=== PATIENT | male | born 1965 | race Caucasian/White ===

== ENCOUNTER 2025-04-23 23:26 | Emergency (ER) | payer OTHER, SELFPAY ==
--- OUTSIDE RECORDS SUMMARY | 2025-04-19 07:50 | XMS_ITS | Encounter Summary ---
Author Organization [place] Address [address] [place] [address] Care Team Providers Care Program Manager Environmental Planning Name Role Phone No Ref-Primary, Physician Primary Care Provider Encounter Details Date Type Department Care Team (Late st Contact Info) Description 04/19/2025 7:50 AM CDT [facility] [address] [place] [address] Essential hypertension, malignant; Erectile dysfunction Social History Tobacco Use Types Packs/Day Years Used Date Smoking Tobacco: Never Assessed Adolescent Education Answer Date Record ed Getting School Help Needed Not on file 04/18 Sex and Gender Information Value Date Recorded Sex Assigned at Not on file 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 Gender Identity Not on file Sexual Orientation Not on file documented as of this encounter Plan of Treatment Not on file documented as of this encounter Procedures Procedure Name Priority Date/Time Associated Diagnosis Comments CBC WITH PLATELETS AND DIFFERENTIAL Routine 04/19/2025 7:31 AM CDT Essential hypertension, malignant Erectile dysfunction CBC WITH PLATELETS & DIFFERENTIAL Routine 04/19/2025 7:31 AM CDT Essential hypertension, malignant Erectile dysfunction PSA TOTAL AND FREE Routine 04/19/2025 7: 31 AM CDT Essential hypertension, malignant Erectile dysfunction LIPID PROFILE Routine 04/19/2025 7:31 AM CDT Essential hypertension, malignant Erectile dysfunction COMPREHENSIVE METABOLIC PANEL Routine 04/19/2025 7:31 AM CDT Essential hypertension, malignant Erectile dysfunction documented in this encounter Results * CBC with platelets and differential (04/19/2025 7:31 AM CDT) WBC Count 4.03 4.00 - 11.00 10e3/uL 04/19/2025 7:41 AM CDT [facility] RBC Count 5.14 4.40 - 5.90 10e6/uL 04/19/2025 7:41 AM CDT [facility] Hemoglobin 15.6 13.3 - 17.7 g/dL 04/19/2025 7:41 AM CDT [facility] Hematocrit 45.7 40.0 - 53.0 % 04/19/2025 7:41 AM CDT [facility] MCV 88.9 78.0 - 100.0 fL 04/19/2025 7:41 AM CDT [facility] MCH 30.4 26.5 - 33.0 pg 04/19/2025 7:41 AM CDT [facility] MCHC 34.1 31.5 - 36.5 g/dL 04/19/2025 7:41 AM CDT [facility] RDW 12.6 10.0 - 15.0 % 04/19/2025 7:41 AM CDT [facility] Platelet Count 197 150 - 450 10e3/uL 04/19/2025 7:41 AM CDT [facility] % Neutrophils 58.3 % 04/19/2025 7:41 AM CDT [facility] % Lymphocytes 29.8 % 04/19/2025 7:41 AM CDT [facility] % Monocytes 9.7 % 04/19/2025 7:41 AM CDT [facility] % Eosinophils 1.7 % 04/19/2025 7:41 AM CDT [facility] % Basophils 0.5 % 04/19/2025 7:41 AM CDT [facility] % Immature Granulocytes 0.0 % 04/19/2025 7:41 AM CDT [facility] Absolute Neutrophils 2.35 1.60 - 8.30 10e3/uL 04/19/2025 7:41 AM CDT [facility] Absolute Lymphocytes 1.20 0.80 - 5.30 10e3/uL 04/19/2025 7:41 AM CDT [facility] Absolute Monocytes 0.39 0.00 - 1.30 10e3/uL 04/19/2025 7:41 AM CDT [facility] Absolute Eosinophils 0.07 0.00 - 0.70 10e3/uL 04/19/2025 7:41 AM CDT [facility] Absolute Basophils <0.04 0.00 - 0.20 10e3/uL 04/19/2025 7:41 AM CDT [facility] Absolute Immature Granulocytes <0.04 <=0.40 10e3/uL 04/19/2025 7:41 AM CDT [facility] Blood BLOOD SPECIMEN / Unknown Venipuncture / Unknown 04/19/2025 7:31 AM CDT 04/19/2025 7:34 AM CDT us Shelly Ely MD LAB - BLOOD ORDERABLES Final Result LABORATORY [facility] - [facility] [address] [facility] (no room number, 1st floor of clinic) [place] [address], [facility] * PSA total and free (04/19/2025 7:31 AM CDT) PSA Free 0.4 ng/mL 04/19/2025 4:40 PM CDT [facility] PSA Percent Free 72.73 % 04/19/20 4:40 PM CDT [facility] Comment: When Total PSA concentration is in the range of 4.0-10.0 ng/mL Probability of Prostate Cancer: Patient Age % Free PSA 50 to 59yrs 60 to 69yrs >= 70yrs 0.00 to 10.00% 49% 58% 65% 10.01 to 18.00% 27% 34% 41% 18.01 to 25.00% 18% 24% 30% > = 25.00% 9% 12% 16% PSA Total 0.55 0.00 - 4.50 ng/mL 04/19/2025 4:40 PM CDT [facility] Blood BLOOD SPECIMEN / Unknown Venipuncture / Unknown 04/19/2025 7:31 AM CDT 04/19/2025 7:34 AM CDT Narrative [facility] - 04/19/2025 4:40 PM CDT Results are obtained using the [employer] Ele[employer] total PSA and free PSA methods on the sujey e801 immunoassay analyzer, which is an ultrasensitive method. Results obtained with different assay methods or kits cannot be used interchangeably. us Shelly Ely MD LAB - BLOOD ORDERABLES Final Result [facility] [address] [facility] [address], [address] [place] [address], [facility] * (ABNORMAL) Lipid Profile (04/19/2025 7:31 AM CDT) Pathologist [facility] Cholesterol 203(H) <200 mg/dL 04/19/2025 4:40 PM CDT [facility] Triglycerides 63 <150 mg/dL 04/19/2025 4:40 PM CDT [facility] Direct Measure HDL 73 >=40 mg/dL 04/19/2025 4:40 PM CDT [facility] LDL Cholesterol Calculated 117(H) <100 mg/dL 04/19/2025 4:40 PM CDT [facility] Comment:LDL calculated using the Friedewald equation. Non HDL Cholesterol 130(H) <130 mg/dL 04/19/2025 4:40 PM CDT [facility] Patient Fasting > 8hrs? Yes 04/19/2025 4:40 PM CDT [facility] Blood BLOOD SPECIMEN / Unknown Venipuncture / Unknown 04/19/2025 7:31 AM CDT 04/19/2025 7:34 AM CDT Narrative [facility] - 04/19/2025 4:40 PM CDT Cholesterol Desirable: < 200 mg/dL Borderline High: 200 - 239 mg/dL High: >= 240 mg/dL Triglycerides Normal: < 150 mg/dL Borderline High: 150 - 199 mg/dL High: 200-499 mg/dL Very High: >= 500 mg/dL Direct Measure HDL Female: >= 50 mg/dL Male: >= 40 mg/dL LDL Cholesterol Desirable: < 100 mg/dL Above Desirable: 100 - 129 mg/dL Borderline High: 130 - 159 mg/dL High: 160 - 189 mg/dL Very High: >= 190 mg/dL Non HDL Cholesterol Desirable: < 130 mg/dL Above Desirable: 130 - 159 mg/dL Borderline High: 160 - 189 mg/dL High: 190 - 219 mg/dL Very High: >= 220 mg/dL Shelly Ely MD LAB - BLOOD ORDERABLES Final Result [facility] [address] [facility], [address] [place] [address], [facility] * Comprehensive metabolic panel (04/19/2025 7:31 AM CDT) Sodium 141 135 - 145 mmol/L 04/19/2025 4:40 PM CDT [facility] Potassium 3.9 3.4 - 5.3 mmol/L 04/19/2025 4:40 PM CDT [facility] Carbon Dioxide (CO2) 26 22 - 29 mmol/L 04/19/2025 4:40 PM CDT [facility] Anion Gap 12 7 - 15 mmol/L 04/19/2025 4:40 PM CDT [facility] Urea Nitrogen 11.6 8.0 - 23.0 mg/dL 04/19/2025 4:40 PM CDT [facility] Creatinine 1.12 0.67 - 1.17 mg/dL 04/19/2025 4:40 PM CDT [facility] GFR Estimate 75 >60 mL/min/1.7 3m2 04/19/2025 4:40 PM CDT [facility] Comment:eGFR calculated 2020 CKD-EPI equation. Calcium 9.5 8.8 - 10.4 mg/dL 04/19/2025 4:40 PM CDT [facility] Chloride 103 98 - 107 mmol/L 04/19/2025 4:40 PM CDT [facility] Glucose 88 70 - 99 mg/dL 04/19/2025 4:40 PM CDT [facility] Alkaline Phosphatase 52 40 - 150 U/L 04/19/2025 4:40 PM CDT [facility] AST 32 0 - 45 U/L 04/19/2025 4:40 PM CDT [facility] ALT 25 0 - 70 U/L 04/19/2025 4:40 PM CDT [facility] Protein Total 6.4 6.4 - 8.3 g/dL 04/19/2025 4:40 PM CDT [facility] Albumin 4.3 3.5 - 5.2 g/dL 04/19/2025 4:40 PM CDT [facility] Bilirubin Total 0.9 <=1.2 mg/dL 04/19/2025 4:40 PM CDT [facility] Patient Fasting > 8hrs? Yes 04/19/2025 4:40 PM CDT [facility] Blood BLOOD SPECIMEN / Unknown Venipuncture / Unknown 04/19/2025 7:31 AM CDT 04/19/2025 7:34 AM CDT us Shelly Ely MD LAB - BLOOD ORDERABLES Final Result [facility] [address] [facility], [address] [place] [address] documented in this encounter Visit Diagnoses Diagnosis Essential hypertension, malignant Erectile dysfunction Impotence of organic origin documented in this encounter Care Teams Program Manager Environmental Planning Relationship Specialty Start Date End Date No Ref-Primary, Physician PCP - General 09/29/18 documented as of this encounter
[2025-04-23 23:43] VITALS: BP 145/90; PULSE 63; RESP 16; TEMP 36.6; O2SAT 98; BMI 24.3
--- NOTE | 2025-04-24 00:24 | ED_ITS ---
HPI - General Adult General Date Seen: 04/24/25 Chief complaint: Syncope/Fainted Stated complaint: feeling faint Time Seen by Provider: 04/24/25 00:02 History of Present Illness HPI narrative: Patient is a 59-year-old male here with his for evaluation of an episode of near syncope tonight. They were at a concert, they were standing on the floor for a period of time when he started to feel lightheaded and tunnel vision. He says he broke out into a sweat and felt nauseated. They left the floor and went to sit down. Symptoms improved after about 20 minutes. He did not have any headache, chest pain, abdominal or back pain. He did note a little bit of shortness of breath. Denies prior history of syncope. He does have a family history with dad having had an LA at a relatively young age, as a result he has had multiple stress tests and had an angiogram but this was many years ago. He has not had any exertional recent symptoms. He has felt some ?heart fluttering occasionally including today, but has no documented history of arrhythmia. He does not smoke or drink, no substances. No medications and denies any medical history. Related Data Home Medications ?Medication ?Instructions ?Recorded ?Confirmed fosinopril 20 mg tablet 20 mg PO DAILY 04/23/2503/29 sildenafil 25 mg tablet 25 mg PO DAILY PRN 04/23/25 04/23/25 Allergies Allergy/AdvReac Type Severity Reaction Status Date / Time No Known Drug Allergies Allergy Verified 04/23/25 23:47 Review of Systems Status of ROS: Reports: 10 or more systems reviewed and unremarkable except as noted in History and below [facility] Social History Smoking Status: Never smoker Do you use any of these nicotine containing products: None How often do you have a drink containing alcohol: monthly or less How often do you have six or more drinks on one occasion: Never AUDIT-C Alcohol total score: 1 Non-prescribed substance use: denies use service: No Exam Narrative: Exam Narrative: Vital signs reviewed In general, alert, nontoxic mid aged male. He is comfortable, breathing easily. Head: Normocephalic, atraumatic. Eyes: Sclera clear. Pupils equal and reactive. ENT: Mucous membranes moist. Neck: Supple without adenopathy. Heart: Regular rate and rhythm without murmur. Lungs: Clear. No increased work of breathing, crackles or wheezes. Abdomen: Soft, nontender to palpation. Extremities: Well perfused, pulses intact. No significant edema. Neurologic: Alert, conversant. Speech fluent, face symmetric. Moves all extremities equally. Skin: Warm, dry well perfused. Affect: Normal. Const: Vital Signs, click to edit/add: Vital Signs - 24 hr 04/23/25 23:43 04/24/25 00:58 04/24/25 01:00 Temperature 98 F Pulse Rate 57 L 56 L Pulse Rate [Pulse Oximeter] 63 Respiratory Rate 16 18 16 Blood Pressure 117/91 H Blood Pressure [Ri ght Upper Arm] 145/90 H Pulse Oximetry 98 95 95 Oxygen Delivery Me thod Room Air Course Course ED Course: Patient presents with a near syncopal episode, diagnostic considerations would include arrhythmia, atypical angina, pulmonary embolism, vasovagal episode. I doubt an acute process such as aortic pathology, acute coronary syndrome, hemorrhage etcetera given that symptoms have resolved. Will check an EKG and basic labs here. If these are normal, plan will be to discharge home, reviewed that we would want him to follow up with primary care to discuss whether another stress test is warranted, ZIO patch would be another consideration. Evaluation here is unremarkable. His EKG shows some nonspecific ST and T-wave changes but nothing overly concerning. QT is 395 milliseconds, indices u nremarkable. Labs are reviewed and are normal, including troponin and D-dimer.. He is feeling well without further symptoms. Discussed all this with him. Discussed that we have not ruled out coronary artery disease or arrhythmia. I think it is reasonable to discharge home now, primary care follow-up as discussed above. Return any time for recurrent episodes or new symptoms such as chest pain, shortness of breath, etc.. Vital Signs Vital signs: Initial Vital Signs Temperature 98 F 04/23/25 23:43 Temperature Source Temporal Artery Scan 04/23/25 23:43 Pulse Rate 63 04/23/25 23:43 Respiratory Rate 16 04/23/25 23:43 Blood Pressure 145/90 H 04/23/25 23:43 Blood Pressure Mean 108 H 04/23/25 23:43 Blood Pressure Position Sitting 04/23/25 23:43 Pulse Oximetry 98 04/23/25 23:43 Oxygen Delivery Method Room Air 04/23/25 23:43 Vital Signs Temperature 98 F 04/23/25 23:43 Pulse Rate 63 04/23/25 23:43 Respiratory Rate 16 04/23/25 23:43 Blood Pressure 145/90 H 04/23/25 23:43 Pulse Oximetry 98 04/23/25 23:43 Oxygen Delivery Method Room Air 04/23/25 23:43 Temperature 98 F 04/23/25 23:43 Pulse Rate 56 L 04/24/25 01:00 Respiratory Rate 16 04/24/25 01:00 Blood Pressure 117/91 H 04/24/25 00:58 Pulse Oximetry 95 04/24/25 01:00 Oxygen Delivery Method Room Air 04/23/25 23:43 Medical Decision Making Lab Data Lab results reviewed: Yes I reviewed the patient's lab results Labs: Lab Results 04/24/25 04/24/25 Range/Units 00:13 00:26 WBC 9.08 (4.50-11.00) K/uL RBC 5.28 (4.30-5.90) m/uL Hgb 15.7 (13.5-17.5) gm/dL Hct 46.9 (37.0-53.0) % MCV 89 (80-100) fL MCH 30 (26-34) pg MCHC 34 (32-36) gm/dL RDW Coeff of Marlene 12.6 (11.5-15.5) % Plt Count 215 (140-440) K/uL Neut % (Auto) 80.2 H (42.0-72.0) % Lymph % (Auto) 10.2 L (20-44) % [place] % (Auto) 7.7 (0.0-11.0) % Eos % (Auto) 0.6 (0.0-7.0) % Baso % (Auto) 0.3 (0.0-3.0) % Neut # (Auto) 7.30 H (1.7-7.0) K/uL Lymph # (Auto) 0.90 (0.90-2.90) K/uL [place] # (Auto) 0.70 (0.00-0.90) K/UL Eos # (Auto) 0.05 (0.00-0.50) K/uL Baso # (Auto) 0.03 (0.00-0.30) K/uL Abs Immat Gran (auto) 0.09 (0.00-0.30) K/uL Imm/Tot Granulo (auto) 1.0 % D-Dimer Quant (PE/DVT) 0.30 (0.00-0.50) ug/ml Sodium 140 (135-149) mmol/L Potassium 3.9 (3.6-5.1) mmol/L Chloride 102 (96-114) mmol/L Carbon Dioxide 28 (20-32) mmol/L Anion Gap 10 (7-15) mEq/L BUN 23 (7-30) mg/dL Creatinine 1.3 (0.5-1.5) mg/dL Estimated Creat Clear 57.73 Estimated GFR 63 ml/min Glucose 100 (60-115) mg/dL Calcium 9.6 (8.4-10.6) mg/dL Total Bilirubin 0.9 (0.1-1.5) mg/dL AST 39 H (12-35) U/L ALT 33 (4-50) U/L Alkaline Phosphatase 49 (40-150) U/L Total Protein 7.1 (6.0-8.3) g/dL Albumin 4.5 (3.3-5.0) g/dL POC Troponin I 0.00 L (0.01-0.04) ng/ml Discharge Plan Discharge Clinical Impression: Near syncope Patient Disposition: Home, Self-Care Condition: Improved Instructions: Near Syncope (ED) Additional Instructions: All of your tests tonight are normal. There is no evidence of a heart attack, blood clot, anemia, dehydration, electrolyte abnormality or other acute condition. However, none of the tests that we have done tonight, as we discussed, answer the question of whether you may be developing heart disease. Another consideration would be that this could have been a brief arrhythmia, or abnormal heart rhythm. I do think it is most likely that this was a vasovagal reaction, but I would like you to follow-up with primary care to discuss whether further testing either stress test or ZIO patch, would be indicated. In the meantime, if you have recurrent symptoms, developed chest pain, shortness of breath, fainting, or other worsening symptoms, return to the ER at any time. Prescriptions: No Action fosinopril 20 mg tablet 20 mg PO DAILY sildenafil 25 mg tablet 25 mg PO DAILY PRN Rx Instructions: administer 30 minutes to 4 hours before activity Follow Up/Referrals: Shelly Ely MD [Primary Care Provider, Family Practice] Stand Alone Forms: [employer] Info Instructions
[2025-04-24 00:37] LABS: Hematocrit* 46.9 % (37.0-53.0); Hemoglobin* 15.7 gm/dL (13.5-17.5); Immature Granulocytes Abs Auto 0.09 K/uL (0.00-0.30); Immature Granulocytes Pct Auto 1.0 %; Mean Corpuscular HGB Conc 34 gm/dL (32-36); Mean Corpuscular Hemoglobin 30 pg (26-34); Mean Corpuscular Volume 89 fL (80-100); RDW Coefficient of Variation % 12.6 % (11.5-15.5); Red Blood Count* 5.28 m/uL (4.30-5.90); White Blood Count* 9.08 K/uL (4.50-11.00)
--- OUTSIDE RECORDS SUMMARY | 2025-04-24 00:54 | XMS_ITS | Clinical Summary ---
Author Organization [place] Address [address] [place] [id number] Care Team Providers Care Seedling Sorter Name Role Phone No Ref-Primary, Physician Primary Care Provider Encounters Date Type Department Care Team Description 04/19/2025 7:50 AM CDT Lab [facility] [address] [place] [phone] Essential hypertension, malignant; Erectile dysfunction 04/19/2025 Travel 04/13/2025 Orders Only [facility] [address] [place] [address] Shelly Ely MD Essential hypertension, malignant (Primary Dx); Erectile dysfunction from Last 3 Months Social History Tobacco Use Types Packs/Day Years Used Date Smoking Tobacco: Never Assessed Adolescent Education Answer Date Record ed Getting School Help Needed Not on file 04/18 Sex and Gender Information Value Date Recorded Sex Assigned at Not on file 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 Gender Identity Not on file Sexual Orientation Not on file Plan of Treatment Health Maintenance Due Date Last Done Comments ADVANCE CARE PLANNING 1963 ANNUAL REVIEW OF HM ORDERS 1963 CT COLONOGRAPHY 1963 FIT 1963 FLEX SIG 1963 COLONOSCOPY 1973 HIV SCREENING 1978 PNEUMOCOCCAL VACCINE 50+ YEARS (1 of 1 - PCV) 2013 YEARLY PREVENTIVE VISIT 03/25/2024 03/25/20, 03/04/2022, 03/04/2022, Additional history exists PHQ-2 (once per calendar year) 2024 COVID-19 VACCINE ( season) 2025 07/13/2021, 11/12/2020, 10/21/2020 INFLUENZA VACCINE (#1) 2025 08/01/2008 COLORECTAL CANCER SCREENING 01/30/2026 sDNA (Cologuard) 01/30/2026 01/30/2023 BMP 04/19/2026 04/19/2025, 08/09/2023, 02/16/2023, Additional history exists DIABETES SCREENING 04/19/2028 04/19/2025, 0 03/19/2024, 02/16/2023, Additional history exists LIPID 04/19/2030 04/19/2025, 0809/2023, 02/16/2023, Additional history exists DTAP/TDAP/TD VACCINE (2 - Td or Tdap) 03/22/2034 03/22/2024 RSV VACCINE (1 - 1-dose 75+ series) 2038 HEPATITIS C SCREENING Completed 12/01/2017 ZOSTER VACCINE Completed 03/25/2023, 03/13/2021 HPV VACCINE (No Doses Required) Completed MENINGITIS VACCINE Aged Out No longer eligible based on patient's age to complete this topic Procedures Procedure Name Priority Date/Time Associated Diagnosis Comments CBC WITH PLATELETS & DIFFERENTIAL Routine 04/19/2025 7:31 AM CDT Essential hypertension, malignant Erectile dysfunction CBC WITH PLATELETS AND DIFFERENTIAL Routine 04/19/2025 7:31 AM CDT Essential hypertension, malignant Erectile dysfunction PSA TOTAL AND FREE Routine 04/19/2025 7: 31 AM CDT Essential hypertension, malignant Erectile dysfunction LIPID PROFILE Routine 04/19/2025 7:31 AM CDT Essential hypertension, malignant Erectile dysfunction COMPREHENSIVE METABOLIC PANEL Routine 04/19/2025 7:31 AM CDT Essential hypertension, malignant Erectile dysfunction from Last 3 Months Results * CBC with platelets and differential [...] 7:31 AM CDT 04/19/2025 7:34 AM CDT Shelly Ely MD LAB - BLOOD ORDERABLES Final Result [facility] [address] [facility] Lab (no room number, 1st floor of clinic) [place] [address], [facility] * PSA total and free (04/19/2025 7:31 AM CDT) PSA Free 0.4 ng/mL 04/19/2025 4:40 PM CDT [facility] PSA Percent Free 72.73 % 04/19/20 25 4:40 PM CDT [facility] Comment: When [...] methods or kits cannot be used interchangeably. Shelly Ely MD LAB - BLOOD ORDERABLES Final Result [facility] [address] [facility], [address] [place] [phone] * (ABNORMAL) Lipid Profile (04/19/2025 7:31 AM CDT) Cholesterol 203(H) <200 mg/dL 04/19/2025 4:40 PM [...] - BLOOD ORDERABLES Final Result [facility] [address] [facility], [address] [place] [address], [facility] * Comprehensive metabolic panel (04/19/2025 7:31 AM [...] 7:31 AM CDT 04/19/2025 7:34 AM CDT Shelly Ely MD LAB - BLOOD ORDERABLES Final Result [facility] [address] [facility], [address] [place] [address], [facility] from Last 3 Months Insurance [employer] [place] [employer] Care Teams Seedling Sorter Relationship Specialty Start Date End Date No Ref-Primary, Physician PCP - General 09/29/18
--- OUTSIDE RECORDS SUMMARY | 2025-04-24 00:54 | XMS_ITS | Encounter Summary ---
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
--- OUTSIDE RECORDS SUMMARY | 2025-04-24 00:54 | XMS_ITS | Encounter Summary ---
Author Organization [facility] Address [address] [place] [address] Care Team Providers Care Capsule Machine Operator Name Role Phone No Ref-Primary, Physician Primary Care Provider Encounter Details Date Type Department Care Team (Late st Contact Info) Description 04/13/[address] 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 Gender Identity Not on file Sexual Orientation Not on file documented as of this encounter Plan of Treatment Not on file documented as of this encounter Results * PSA total and free (04/19/2025 7:31 [...] - BLOOD ORDERABLES Final Result [facility] [address] [facility], [address] [address] * (ABNORMAL) Lipid Profile (04/19/2025 7:31 [...] 219 mg/dL Very High: >= 220 mg/dL us Shelly Ely MD LAB - BLOOD ORDERABLES Final Result [facility] [address] [facility], [address] [phone] * Comprehensive metabolic panel (04/19/2025 7:31 [...] 4:40 PM CDT [facility] Comment:eGFR calculated us2020 CKD-EPI equation. Calcium 9.5 8.8 - 10.4 [...] - BLOOD ORDERABLES Final Result [facility] [address] [facility], [address] [phone] documented in this encounter Visit Diagnoses Diagnosis Essential hypertension, malignant- Primary Erectile dysfunction Impotence of organic origin documented in this encounter Care Teams Capsule Machine Operator Relationship Specialty Start Date End Date No Ref-Primary, Physician PCP - General 09/29/18 documented as of this encounter
[2025-04-24 00:55] LABS: Chloride* 102 mmol/L (96-114)
[2025-04-24 00:56] LABS: Albumin* 4.5 g/dL (3.3-5.0); Potassium* 3.9 mmol/L (3.6-5.1); Sodium* 140 mmol/L (135-149)
[2025-04-24 00:58] VITALS: BP 117/91; PULSE 57; RESP 18; O2SAT 95
[2025-04-24 00:58] LABS: Alanine Aminotransferase* 33 U/L (4-50); Anion Gap 10 mEq/L (7-15); Aspartate Amino Transferase* 39 U/L (12-35); Blood Urea Nitrogen* 23 mg/dL (7-30); Carbon Dioxide* 28 mmol/L (20-32); Creatinine* 1.3 mg/dL (0.5-1.5); Est. Creatinine Clearance* 57.73; Estimated Glomerular Filt Rate 63 ml/min; Total Protein* 7.1 g/dL (6.0-8.3)
[2025-04-24 00:59] LABS: Alkaline Phosphatase* 49 U/L (40-150); Bilirubin Total* 0.9 mg/dL (0.1-1.5); Calcium* 9.6 mg/dL (8.4-10.6); Glucose* 100 mg/dL (60-115)
[2025-04-24 01:00] VITALS: PULSE 56; RESP 16; O2SAT 95
[2025-04-24 01:01] LABS: D Dimer Quantitative* 0.30 ug/ml (0.00-0.50); Lymphocytes Absolute Auto 0.90 K/uL (0.90-2.90); Slide Review Reflex No
[2025-04-24 01:12] LABS: Troponin, Point-of-Care* 0.00 ng/ml (0.01-0.04)
== END 2025-04-24 01:50 | disposition home or self-care (01) ==
PROVIDERS: Emergency Provider Emergency Medicine; PCP Family Medicine
DX: R55 Syncope and collapse (principal); R06.02 Shortness of breath
CPT/HCPCS: 36415; 80053; 84484; 85025; 85379; 93005; 94761; 99284